=== PATIENT | male | born 1970 | race Caucasian/White ===

== ENCOUNTER 2019-12-06 16:39 | Emergency (ER) | payer BC, SELFPAY ==
[2019-12-06 16:45] VITALS: BP 113/75; PULSE 65; TEMP 36.6; O2SAT 96
--- NOTE | 2019-12-06 17:00 | ED.GENADUL_ITS ---
Discharge Plan Disposition Patient Disposition: HOME Condition: Stable Discharge Details Chief Complaint: Laceration Clinical Impression: Laceration of ear region Primary Care Provider: [facility],Local ED Provider: Apple Sidhu Home Meds and New Rx's Prescriptions: No Action No Known Home Meds RF: 0 Discharge Instructions Instructions: Laceration (ED), Skin Adhesive Care (ED) Additional Instructions: Keep wound clean and dry. Do not cover with ointment, Band-Aid or dressing. The glue or Dermabond will start to dry fall off as the skin underneath begins to heal. Follow-up with your primary care doctor in 1 week for wound check. Return immediately to the emergency department if you develop any worsening or new concerning symptoms. Discharge Data Discharge Date/Time-TO BE ENTERED AT DEPARTURE: 12/06/19 18:10 Discharge Physician: Apple Sidhu Medical Decision Making 49-year-old male presents with laceration just above left ear in the crease between the ear and the left temporal side of his head that was sustained after he was hit with a tree branch. Denies LOC, neck pain or vomiting. He has a 4 cm laceration just above his left ear on the left sabianism part of his head within the crease between his ear and scalp. Discussed with patient that we can place sutures but he is declining and would rather glue. His ear was irrigated well, edges well approximated and closed with Dermabond. Patient was advised on care for Dermabond. Advised to follow up with the primary care doctor for re-evaluation. Usual and customary return precautions given prior to discharge. HPI General Mode of arrival: ambulatory . Date/Time Provider Initiated Documentation: 12/06/19 16:56 . Limitations to Documentation: no limitations . Information obtained by: patient . HPI Narrative: Patient is a 49-year-old male who presents with laceration just above left ear sustained when he was cutting a tree branch in its long hitting the left side of his head just above his left ear. Tetanus up-to-date. He denies any other injury. Denies LOC, vomiting, headache or neck pain. Related Data Home Medications Medication Instructions Recorded Confirmed Unknown [No Known Home Meds] 12/06/19 12/06/19 Allergies Allergy/AdvReac Type Severity Reaction Status Date / Time No Known Allergies Allergy Unverified 12/06/19 16:48 General Stated Complaint: EarProblem VANGIE: 4 Review of Systems All systems reviewed & are unremarkable except as noted in HPI and below PFSH Medical History (Updated 12/06/19 @ 17:53 by Apple Sidhu DO) No significant past medical history (Acute) Surgical History (Updated 12/06/19 @ 17:48 by Apple Sidhu DO) No significant past surgical history (Acute) Social History Smoking/Tobacco Use Status: Never Alcohol Intake: current Alcohol Intake frequency: 0-2 drinks per day Alcohol type: beer Drug use: Never Substance use type: does not use Do you feel safe at home: Yes Do you feel safe in your relationship?: Yes Exam Const General: cooperative, healthy appearing and no acute distress HENMT Head: normal to inspection Ears: hearing grossly normal bilaterally and TM's normal bilaterally Outer ear/TM images: 1. 4cm straight laceration through dermis located in area between ear and temporal region of head. Edges well approximated. No active bleeding. Mouth: oral mucosae normal Eyes General: appearance normal, both eyes and all related structures Neck Neck: normal visual inspection Resp Effort & Inspection: normal respiratory effort and able to speak in complete sentences Cardio Rate: regular rate Skin General skin exam: no rashes or lesions noted Neuro General: patient alert, patient awake and patient oriented x3 Motor: muscle tone normal throughout Extrem General: normal to inspection and full ROM Psych Appearance: grossly normal Affect: normal affect Course Vital Signs Vital signs: Vital Signs Temperature 97.9 F 12/06/19 16:45 Pulse 65 12/06/19 16:45 Blood Pressure 113/75 12/06/19 16:45 Pulse Oximetry 96 12/06/19 16:45 Temperature 97.9 F 12/06/19 16:45 Temperature Source Temporal Artery Scan 12/06/19 16:45 Pulse 65 12/06/19 16:45 Respiratory Effort Non-Labored 12/06/19 16:47 Blood Pressure 113/75 12/06/19 16:45 Blood Pressure Position Sitting 12/06/19 16:45 Pulse Oximetry 96 12/06/19 16:45 Oxygen Delivery Method Room Air 12/06/19 16:45 Oxygen Flow Rate 0 12/06/19 16:45 Pain Level 1 12/06/19 16:45 Procedures Laceration Laceration 1: Site: scalp Side (If applicable): left Size (cm): 4 Description: linear Depth: simple, single layer Pre-repair: wound explored, irrigated extensively and deep structures intact Skin layer closed with: other (dermabond)
== END 2019-12-06 18:10 | disposition home or self-care (01) ==
LOC: ER 18:53
PROVIDERS: Emergency Provider Physician Assistant
DX: S01.312A Laceration without foreign body of left ear, initial encounter (principal); W20.8XXA Other cause of strike by thrown, projected or falling object, initial encounter; Y93.H2 Activity, gardening and landscaping
CPT/HCPCS: 12002